=== PATIENT | male | born 1995 | race African-American/Black ===

== ENCOUNTER 2021-02-03 02:12 | Emergency (ER) | payer OTHER, MEDICAID ==
[~2021-02-03] VITALS: Ht 180.3 cm; Wt 66.0 kg
[2021-02-03 03:48] LABS: BASOPHILS % 1.1 % (0.0-2.0); EOSINOPHILS % 3.2 % (0.0-5.0); HEMATOCRIT. 40.4 % (42.0-52.0); HEMOGLOBIN. 14.1 g/dL (14.0-18.0); MEAN CORPUSCULAR HEMOGLOBIN 31.7 pg (28.0-32.0); MEAN PLATELET VOLUME 11.3 fl (7.4-10.4); MONOCYTES % 9.1 % (2.0-8.0); NEUTROPHILS % 59.6 % (40.0-76.0); PLATELET 118 x1000/uL (130-400); RED BLOOD CELL COUNT 4.44 mill/uL (4.7-6.1); RED CELL DISTRIBUTION WIDTH 13.2 % (11.6-14.6)
[2021-02-03 03:55] VITALS: BP 139/102
[2021-02-03 03:55] LABS: CHLORIDE 107 mEq/L (98-107)
[2021-02-03] MEDS ORDERED: INDOMETHACIN 25MG CAPSULE PO ONE (04:45)
[2021-02-03] MEDS ORDERED: INDO-14 MT (05:16)
== END 2021-02-03 06:00 | disposition left against medical advice (07) ==
LOC: ER 02:12
DX: R07.89 Other chest pain (principal); I31.9 Disease of pericardium, unspecified; R94.39 Abnormal result of other cardiovascular function study
CPT/HCPCS: 36415; 71045; 80048; 84484; 85025; 85379; 93005; 99291